=== PATIENT | male | born 1950 | race Hispanic/Latino ===

== ENCOUNTER → 2017-11-30 | Outpatient (CLI) | payer MEDICARE ==
[~2017-11-30] MED LIST: METOPROLOL SUCC25 MG PO; PROTONIX40 M2; TRAMADOL HCL50 M1 PO; TYLENOL # 31 EA PO; Z.0.FLEXERIL10 MG PO; Z.2.LISINOPRIL-HCT1 PO; [UNRECOGNIZED DRUG - OTHER] TP
--- NOTE | 2017-11-30 12:21 | Diagnostic Imaging Report ---
PROCEDURE:X-RAY RIGHT ELBOW, COMPLETE COMPARISON:None. INDICATIONS:RIGHT ELBOW PAIN FINDINGS: There are no fractures, dislocations, lytic or blastic lesions. The bones are well-mineralized. Minimal degenerative changes. 1.0 cm soft tissue calcification in the posterior elbow may reflect prior avulsion injury versus tendon calcification. No joint effusion. CONCLUSION: Minimal degenerative joint disease. Bryan Lake M.D. Dictated by: Bryan Lake M.D. on 11/30/2017 at 12:21 Electronically approved by: Bryan Lake M.D. on 11/30/2017 at 12:21
== END ==
LOC: RAD 11:11
DX: M25.521 Pain in right elbow (principal); W19.XXXA Unspecified fall, initial encounter

== ENCOUNTER → 2018-06-20 | Outpatient (CLI) | payer MEDICARE ==
--- NOTE | 2018-06-20 15:10 | Diagnostic Imaging Report ---
Lumbar Spine Radiographs: 5 views including oblique views Rib series: 4 views HISTORY: Left lower rib pain, back pain COMPARISON: None available. DISCUSSION: The osseous structures are partially obscured by stool and bowel gas. 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 Mild left convex curvature. A 6 mm anterolisthesis of L4 on L5. No displaced fracture or compression deformity is identified. Incidentally, anterior cervical fixation hardware at C6-7. Disc Spaces: Minimal to mild multilevel degenerative changes. Facets: Multilevel hypertrophic degenerative changes, most notably moderate at L4-5 and L5-S1. Other: Metallic clips in the right upper quadrant of the abdomen are compatible with prior cholecystectomy. Diffuse scattered atherosclerotic vascular calcifications. IMPRESSION: 1. No acute radiographic abnormality, specifically no acute displaced fracture. 2. Multilevel degenerative changes of the axial skeleton, most notably moderate at L4-5, including grade 1 degenerative anterolisthesis of L4 on L5. Signed by: Dr. Omid Turner D.O., M.M.M. on 06/20/2018 3:07 PM
== END ==
LOC: RAD 12:04
DX: R07.89 Other chest pain (principal); M54.5 Low back pain
CPT/HCPCS: 71101; 72110

== ENCOUNTER → 2018-09-03 | Outpatient (CLI) | payer MEDICARE ==
[~2018-09-03] MED LIST changes: -PROTONIX40 M2; +PROTONIX40 M2 PO; +ULTRAM 50MG50 MG PO
--- NOTE | 2018-09-03 14:09 | Diagnostic Imaging Report ---
Exam: Ultrasound extremity limited History: Left inguinal hernia Findings: Transverse and sagittal ultrasonographic images were obtained of the left inguinal region with grayscale and color Doppler imaging. No abnormal fluid collection is seen. No abnormal mass is seen. No hernia is seen. Impression: No abnormal mass is seen. No hernia is seen. Signed by: Dr. Marc Mcelroy M.D. on 09/03/2018 2:06 PM
--- NOTE | 2018-09-04 07:15 | Diagnostic Imaging Report ---
TECHNIQUE: Magnetic resonance imaging of the LEFT KNEE was performed WITHOUT injected contrast. HISTORY: Knee pain COMPARISON: None available. FINDINGS: LIGAMENTS AND TENDONS: ACL: Intact PCL: Intact Collateral ligaments: Intact Iliotibial band: Unremarkable Popliteal tendon: Intact Extensor mechanism: Intact JOINT: Menisci: Medial: Horizontal tear of the body and posterior horn. Lateral: Degenerative signal without tear. Articular Cartilage: Medial Compartment: Partial-thickness cartilage loss Lateral Compartment: No focal defect. Patellofemoral Compartment: No focal defect. Joint Fluid: The amount of fluid within the joint is within physiologic limits. BONE: No focal or infiltrative bone marrow replacing abnormality. No acute fracture. SOFT TISSUES: Otherwise, unremarkable. IMPRESSION: Medial meniscus horizontal tear body and posterior horn with partial thickness cartilage loss Signed by: Dr. Aaron Sotelo M.D. on 09/04/2018 7:11 AM
== END ==
LOC: MRI 13:08
DX: M25.562 Pain in left knee (principal); K40.90 Unilateral inguinal hernia, without obstruction or gangrene, not specified as recurrent
CPT/HCPCS: 76882

== ENCOUNTER → 2018-10-02 | Day surgery (SDC) | payer MEDICARE ==
--- NOTE | 2018-09-30 11:48 | Diagnostic Imaging Report ---
EXAM: XR CHEST 2 VIEWS DATE: 09/30/2018 10:57 AM INDICATION: Preoperative, pain, knee COMPARISON: 06/20/2018, no report available FINDINGS: Lines and Tubes: None Heart and Mediastinum: No acute cardiomediastinal findings. Mild aortic vascular calcifications. Lungs and Pleura: No significant pleural effusion, pneumothorax, or focal consolidation. Granuloma substernal region lateral view. Bones and Soft Tissues: Cervical orthopedic hardware. IMPRESSION: 1. No acute cardiopulmonary findings. Signed by: Dr. Hubert Rodriguez MD on 09/30/2018 11:45 AM
[2018-09-30 11:51] LABS: BASOPHILS % 0.4 % (0.0-1.0); EOSINOPHILS # (AUTO) 0.3 (0.0-0.4); EOSINOPHILS % 3.1 % (0.0-6.0); HEMATOCRIT 46.8 % (38.2-49.6); HEMOGLOBIN 15.3 g/dL (14.0-18.0); LYMPHOCYTES # (AUTO) 2.8 (1.0-3.2); LYMPHOCYTES % 30.1 % (18.0-39.1); MEAN CORPUSCULAR HEMOGLOBIN 28.8 pg (28-32); MEAN CORPUSCULAR HGB CONC 32.7 g/dL (31-35); MONOCYTES # (AUTO) 0.6 (0.2-0.8); MONOCYTES % 6.7 % (4.4-11.3); NEUTROPHILS # (AUTO) 5.6 (2.1-6.9); NEUTROPHILS % 59.6 % (38.7-80.0); PLATELET COUNT 269 x10e3/uL (140-360); RED BLOOD COUNT 5.32 x10e6/uL (4.3-5.7); RED CELL DISTRIBUTION WIDTH 13.5 % (11.7-14.4)
[~2018-10-02] MED LIST changes: +BUPIVACAINE 0.5%/EPI 30 ML SDV INJ ONE; +CEFAZOLIN SOD 2 GM/D5W 50ML 50 ML IV ONE; +DEXAMETHASONE SOD PHOS INJ 4 MG/ML VIAL ONE; +FENTANYL CITRATE/PF 100MCG/2 ML INJ ONE; +LIDOCAINE HCL 2% LOCAL INJ 5 ML SDV VIAL INJ ONE; +MIDAZOLAM HCL 2 MG/2 ML VIAL ONE; +ONDANSETRON HCL INJ 2 MG/ML VIAL ONE; +PROPOFOL IV EMULSION 10 MG/ML 20 ML VIAL ONE; +SEVOFLURANE INHAL SOLN 250 ML PEN BTL ONE
--- OUTSIDE RECORDS SUMMARY | 2018-10-02 11:38 | XMS REPORT ---
Author Author [facility] Address Unknown Phone Unavailable Care Team Providers Care Apparel Merchandiser Name Role Phone MICAH FORBES Unavailable Unavailable BROWNDIANN Unavailable Unavailable Problems This patient has no known problems. Allergies, Adverse Reactions, Alerts This patient has no known allergies or adverse reactions. Medications This patient has no known medications. Results Test Description Test Time Test Comments Text Results Atomic Results Result Comments CHEST 2 VIEWS 2018-09-30 11:44:00 [place] [address] Patient Name: VIVIANE REIS MR #: [id number] : 1950 Age/Sex: 67/M Req #: [id number] Adm Physician: Ordered by: MICAH FORBES MD Report #: [id number] Location: OR Room/Bed: Procedure: [id number] DX/CHEST 2 VIEWS Exam Date: 09/30/18 Exam Time: 1120 REPORT STATUS: Signed EXAM: XR CHEST 2 VIEWS DATE: 09/30/2018 10:57 AM IN DICATION: Preoperative, pain, knee COMPARISON: 06/20/2018, no report available FINDINGS: Lines and Tubes: None Heart and Mediastinum: No acute cardiomediastinal findings. Mild aortic vascular calcifications. Lungs and Pleura: No significant pleural effusion, pneumothorax, or focal consolidation. Granuloma substernal region lateral view. Bones and Soft Tissues: Cervical orthopedic hardware. IMPRESSION: 1. No acute cardiopulmonary findings. Signed by: Dr. Hubert Rodriguez MD on 09/30/2018 11:45 AM Dictated By: HUBERT RODRIGUEZ MD 1145 Transcribed By: SIMONA on 09/30/18 1145 COPY TO: MICAH FORBES MD MRI KNEE LEFT WO 2018-09-04 07:10:00 [place] [address] Patient Name: VIVIANE REIS MR #: [id number] : 1950 Age/Sex: 67/M Req #: [id number] Adm Physician: Ordered by: DIANN BROWN MD Report #: [id number] Location: MRI Room/Bed: Procedure: [id number] MRI/MRI KNEE LEFT WO Exam Date: 09/03/18 Exam Time: 1507 REPORT STATUS: Signed TECHNIQUE: Magnetic resonance imaging of the LEFT KNEE was performed WITHOUT injected contrast. HISTORY: Knee pain COMPARISON: None available. FINDINGS: LIGAMENTS AND TENDONS: ACL: Intact PCL: Intact Collateral ligaments: Intact Iliotibial band: Unremarkable Popliteal tendon: Intact Extensor mechanism: Intact JOINT: Menisci: Medial: Horizontal tear of the body an d posterior horn. Lateral: Degenerative signal without tear. Articular Cartilage: Medial Compartment: Partial-thickness cartilage loss Lateral Compartment: No focal defect. Patellofemoral Compartment: No focal defect. Joint Fluid: The amount of fluid within the joint is within physiologic limits. BONE: No focal or infiltrative bone marrow replacing abnormality. No acute fracture. SOFT TISSUES: Otherwise, unremarkable. IMPRESSION: Medial meniscus horizontal tear body and posterior horn with partial thickness cartilage loss Signed by: Dr. Yumiko Dobbins M.D. on 09/04/2018 7:11 AM Dictated By: YUMIKO DOBBINS MD 0 Transcribed By: SIMONA on 09/04/18710 COPY TO: DIANN BROWN MD US EXTREMITY NGUYEN NON-VAS 2018-09-03 14:05:00 [place] [address] Patient Name: VIVIANE REIS MR #: [id number] : 1950 Age/Sex: 67/M Req #: [id number] Adm Physician: Ordered by: DIANN BROWN MD Report #: [id number] Location: MRI Room/Bed: Procedure: [id number] US/US EXTREMITY NGUYEN NON-VAS Exam Date: 09/03/18 Exam Time: 1330 REPORT STATUS: Signed Exam: Ultrasound extremity limited History: Left inguinal hernia Findings: Transverse and sagittal ultrasonographic images were obtained of the left inguinal region with grayscale and color Doppler imaging. No abnormal fluid collection is seen. No abnormal mass is seen. No hernia is seen. Impression: No abnormal mass is seen. No hernia is seen. Signed by: Dr. Marc Mcelroy M.D. on 09/03/2018 2:06 PM Dictated By: MARC MCELROY MD, MD 05 Transcribed By: SIMONA on 09/03/181405 COPY TO: DIANN BROWN MD W/CXR 2018-06-20 15:02:00 [place] [address] Patient Name: VIVIANE REIS MR #: [id number] : 1950 Age/Sex: 67/M Req #: [id number] [facility] Physician: Ordered by: DIANN BROWN MD Report #: [id number] Location: [facility] Room/Bed: Procedure: [id number] DX/RIBS UNILAT W/CXR Exam Date: 06/20/18 Exam Time: 1220 REPORT STATUS: Signed Lumbar Spine Radiographs: 5 views including oblique views Rib series: 4 views HISTORY: Left lower rib pain, back pain COMPARISON: None available. DISCUSSION: The osseous structures are partially obscured by stool and bowel gas. 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 Mild left convex curvature. A 6 mm anterolisthesis of L4 on L5. No displaced fracture or compression deformity is identified. Incidentally, anterior cervical fixation hardware at C6-7. Disc Spaces: Minimal to mild multilevel degenerative changes. Facets: Multilevel hypertrophic degenerative changes, most notably moderate at L4-5 and L5-S1. Other: Metallic clips in the right upper quadrant of the abdomen are compatible with prior cholecystectomy. Diffuse scattered atherosclerotic vascular calcifications. IMPRESSION: 1. No acute radiographic abnormality, specifically no acute displaced fracture. 2. Multilevel degenerative changes of the axial skeleton, most notably moderate at L4-5, including grade 1 degenerative anterolisthesis of L4 on L5. Signed by: Esdras SterlingO., M.M.M. on 06/20/2018 3:07 PM Dictated By: INDRA TURNER DO 5203 Transcribed By: SIMONA on 06/20/18 5559 COPY TO: DIANN BROWN MD SP LUMBAR, COMPLETE MIN 4VW 2018-06-20 15:02:00 [place] [id number] [place] [address] Patient Name: VIVIANE REIS MR #: [id number] : 1950 Age/Sex: 67/M Req #: [id number] Adm Physician: Ordered by: DIANN BROWN MD Report #: [id number] Location: [facility] Room/Bed: Procedure: [id number] DX/SP LUMBAR, COMPLETE MIN 4VW Exam Date: 06/20/18 Exam Time: 1220 REPORT STATUS: Signed Lumbar Spine Radiographs: 5 views including oblique views Rib series: 4 views HISTORY: Left lower rib pain, back pain COMPARISON: None available. DISCUSSION: The osseous structures are partially obscured by stool and bowel gas. 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 Mild left convex curvature. A 6 mm anterolisthesis of L4 on L5. No displaced fracture or compression deformity is identified. Incidentally, anterior cervical fixation hardware at C6-7. Disc Spaces: Minimal to mild multilevel degenerative changes. Facets: Multilevel hypertrophic degenerative changes, most notably moderate at L4-5 and L5-S1. Other: Metallic clips in the right upper quadrant of the abdomen are compatible with prior cholecystectomy. Diffuse scattered atherosclerotic vascular calcifications. IMPRESSION: 1. No acute radiographic abnormality, specifically no acute displaced fracture. 2. Multilevel degenerative changes of the axial skeleton, most notably moderate at L4-5, including grade 1 degenerative anterolisthesis of L4 on L5. Signed by: Dr. Indra Turner D.O., M.M.M. on 06/20/2018 3:07 PM Dictated By: INDRA TURNER DO 1507 Transcribed By: SIMONA on 06/20/18 150 COPY TO: DIANN BROWN MD ELBOW RIGHT COMPLETE [place] [address] Patient Name: VIVIANE REIS MR #: [id number] : 1950 Age/Sex: 66/M Req #: [id number] Adm Physician: Ordered by: DIANN BROWN MD Report #: [id number] Location: [facility] Room/Bed: Procedure: [id number] DX/ELBOW RIGHT COMPLETE Exam Date: 11/30/17 Exam Time: 1110 REPORT STATUS: Signed PROCEDURE: X-RAY RIGHT ELBOW, COMPLETE COMPARISON: None. INDICATIONS: RIGHT ELBOW PAIN FINDINGS: There are no fractures, dislocations, lytic or blastic lesions. The bones are well-mineralized. Minimal degenerative changes. 1.0 cm soft tissue calcification in the posterior elbow may reflect prior avulsion injury versus tendon calcification. No joint effusion. CONCLUSION: Minimal degenerative joint disease. Bryan Cervantes M.D. Dictated by: Bryan Cervantes M.D. on 11/30/2017 at 12:21 Electronically approved by: Bryan Cervantes M.D. on 11/30/2017 at 12:21 Dictated By: NERY CERVANTES MD, MD 1221 Transcribed By: BANDAR on 11/30/17 1221 COPY TO: DIANN BROWN MD
[2018-10-02 15:15] VITALS: BP 140/76
--- NOTE | 2018-10-03 14:21 | Operative Report ---
DATE OF PROCEDURE: October 02, 2018 PREOPERATIVE DIAGNOSES: 1. Left knee medial meniscus tear. 2. Left knee degenerative joint disease of the knee. POSTOPERATIVE DIAGNOSES: 1. Left knee medial meniscus tear. 1. Left knee degenerative joint disease of the knee. PROCEDURES PERFORMED: The patient underwent a 1. Left knee examination under anesthesia. 2. Left knee arthroscopy. 3. Left knee partial medial meniscectomy. 4. Left knee chondroplasty of the patella, the trochlea, the medial femoral condyle and the medial tibial plateau, the lateral femoral condyle and the lateral tibial plateau. ENVIRONMENTAL LAWYER: Shereen Barrios. ANESTHESIA: General endotracheal intubation anesthesia. INTRAVENOUS FLUIDS: As per the anesthesia record. OPERATIVE PROCEDURE IN DETAIL: Mr. Franco was taken to the operating room and placed in the supine position on the operating room table. Following induction of general anesthesia as well as endotracheal intubation, the patient's right lower extremity was examined under anesthesia. He was found to have a mild effusion within the knee joint but an otherwise ligamentously stable knee. The patient's lower extremity was prepped and draped in the standard surgical fashion. A 2-portal technique was used to provide this patient an arthroscopic evaluation of the knee joint. Examination of the suprapatellar pouch, medial and lateral gutters found no evidence of loose bodies. There was, however, evidence of chondromalacia of the patellar and trochlear surfaces. The scope was advanced in the medial compartment, and examination of the compartment demonstrated a torn medial meniscus. There was also chondromalacia of the articulating surfaces. A combination of biting forceps and a motorized shaver were used to resect the torn portion of meniscus. Chondroplasties of the medial femoral condyle and medial tibial plateau were performed at this time. The scope was advanced into the intercondylar notch, and the anterior cruciate ligament was identified and found to be intact. The scope was then advanced into the lateral compartment, and chondromalacia of the articulating surfaces was encountered. A chondroplasty of the lateral femoral condyle and lateral tibial plateau was performed at this time. The scope was then advanced into the suprapatellar pouch, and chondroplasties of the patella and trochlear were performed. The knee was deflated of its sterile normal saline. Each of the portal sites was closed using 4-0 nylon suture. The portal sites as well as the knee itself were then injected with half percent Marcaine with epinephrine. Sterile dressings were applied, and the patient was awakened and taken to the postanesthesia care unit in stable condition. Job#: [id number]
== END | disposition home or self-care (01) ==
LOC: OR 11:35
PROVIDERS: ATTEND Specialist
DX: S83.222A Peripheral tear of medial meniscus, current injury, left knee, initial encounter (principal); M17.12 Unilateral primary osteoarthritis, left knee; M22.42 Chondromalacia patellae, left knee; I10 Essential (primary) hypertension; R00.1 Bradycardia, unspecified; K21.9 Gastro-esophageal reflux disease without esophagitis; K52.9 Noninfective gastroenteritis and colitis, unspecified; X58.XXXA Exposure to other specified factors, initial encounter; Z01.810 Encounter for preprocedural cardiovascular examination; Z01.812 Encounter for preprocedural laboratory examination; Z01.818 Encounter for other preprocedural examination; Z68.31 Body mass index [BMI] 31.0-31.9, adult
CPT/HCPCS: 29881; 36415; 71046; 85025; 93005; J0690; J1100; J2001; J2250; J2405; J2704

== ENCOUNTER 2018-11-11 08:49 | Outpatient (RCR) | payer MEDICARE ==
[~2018-11-11 08:49] MED LIST changes: -BUPIVACAINE 0.5%/EPI 30 ML SDV INJ ONE; -CEFAZOLIN SOD 2 GM/D5W 50ML 50 ML IV ONE; -DEXAMETHASONE SOD PHOS INJ 4 MG/ML VIAL ONE; -FENTANYL CITRATE/PF 100MCG/2 ML INJ ONE; -LIDOCAINE HCL 2% LOCAL INJ 5 ML SDV VIAL INJ ONE; -MIDAZOLAM HCL 2 MG/2 ML VIAL ONE; -ONDANSETRON HCL INJ 2 MG/ML VIAL ONE; -PROPOFOL IV EMULSION 10 MG/ML 20 ML VIAL ONE; -SEVOFLURANE INHAL SOLN 250 ML PEN BTL ONE
== END 2018-11-14 ==
LOC: PT 08:49
PROVIDERS: ATTEND Specialist
DX: M17.12 Unilateral primary osteoarthritis, left knee (principal); M25.562 Pain in left knee; M62.81 Muscle weakness (generalized)
CPT/HCPCS: 97010; 97110 ×6; 97112 ×2; 97161; G8978; G8979

== ENCOUNTER → 2022-11-23 | Outpatient (CLI) | payer MEDICARE ==
[~2022-11-23] MED LIST changes: +DIATRIZOATE MEGL/DIATRIZOA SOD 30 ML BTL PO ONE; +IOPAMIDOL 370 MG/ML 100 ML INFUS..BTL INJ ONE
[2022-11-23 16:38] LABS: CREATININE, SERUM 1.02 mg/dL (0.72-1.25)
== END ==
LOC: CT 15:54
PROVIDERS: ATTEND Surgery
DX: R10.32 Left lower quadrant pain (principal)
CPT/HCPCS: 36415; 72193; 82565; 84520; Q9963; Q9967

== ENCOUNTER → 2025-07-02 | Outpatient (REF) | payer MEDICARE ==
[~2025-07-02] MED LIST changes: -DIATRIZOATE MEGL/DIATRIZOA SOD 30 ML BTL PO ONE; +METOPROLOL TARTRATE INJ 1 MG/ML VIAL ONE; +NITROGLYCERIN 0.4 MG SUBL ONE; +SODIUM CHLORIDE 0.9% 100 ML ONE
[2025-07-02 08:42] LABS: EST GLOMERULAR FILTRATION RATE 73.0 ML/MIN (>=60)
== END ==
LOC: CT 07:38
PROVIDERS: ATTEND Internal Medicine Interventional Cardiology
DX: I20.9 Angina pectoris, unspecified (principal)
CPT/HCPCS: 36415; 75574; 75580; 82565; 84520; J7050; Q9967